=== PATIENT | female | born 1950 | race Caucasian/White ===

== ENCOUNTER → 2016-09-20 | Outpatient (CLI) | payer MEDICARE, BC ==
[~2016-09-20] MED LIST: ASPI-781 PO; BUPR200T2 PO; CRES10 PO; ESTR1TAB23; IMIT25 PO; LACT1CAP56 PO; LIOT5TAB3 PO; MONT10TA21 PO; PROG100C3; SYN15 PO; TEST100V IM; ZOLM2.5S NASAL
--- NOTE | 2016-09-20 17:35 | HKNOTE ---
DATE OF SERVICE: 09/20/2016 HISTORY OF PRESENT ILLNESS: The patient is a 66-year-old female who presents today for 1 year followup status post right anterior total hip replacement. The patient was last seen about 6 months ago, and since then, the patient states that when she is performing her normal activities of daily living, she has no pain complaints. The patient states that when she performs increased activities such as her exercise class with her personal care aid, she can have moderate to severe pain. The patient had microdiskectomy to the lumbar spine performed in April 2014 which was about 4 months prior to her hip replacement. She states that when she has increased activity, the pain is to the low back and can radiate down the leg. The patient also states that she has groin pain from time to time and is unsure if this is coming from the hip or the back. Currently, the patient is experiencing no pain complaints. She is walking normally with no assisted ambulation or assisted ambulatory device. She states that her primary care physician has recommended physical therapy. She does state however that right hip replacement has been a complete success. PHYSICAL EXAMINATION: VITAL SIGNS: Blood pressure 153/75, temperature 98.3 degrees, pulse 75, respiratory rate 12. Height is 5 feet 3 inches, weight is 155 pounds. GENERAL: The patient has normal range of motion to the right hip. No pain on examination today. Normal abduction and adduction. Strength is normal to the flexors, abductors, and extensors. Normal sensory examination. Gait is normal and nonantalgic. When asked to point to primary area of pain, the patient points to the right-sided lumbar spine. RADIOGRAPHIC DATA: X-ray to the right hip is within normal limits showing all components well aligned and appeared to be well attached and integrated to the bone. No signs of lucencies between metal and bone. ASSESSMENT AND PLAN: Discussion had directly with Dr. Robin today, and based off of patient's pain complaints primary to the right-sided lumbar spine, it appears that pain could be primarily due to the lumbar spine. Dr. Robin agrees that the patient should continue with physical therapy but also she was advised to follow-up with her docket specialist that she is seen in the past for discussion and possible repeat epidural injection. Continue with activity to the right hip as she has been doing well. At this stage, hip is stable with no complications, and the patient may follow up in office if she has any problems down the road. Follow up as needed. Dictated By: PERRY FELDMAN for MAXINE ROBIN MD, KP/ZACK Conf#: [id number] DID#: [id number] MTDD
== END | disposition home or self-care (01) ==
LOC: HKI 13:34
DX: Z47.1 Aftercare following joint replacement surgery (principal); Z96.641 Presence of right artificial hip joint
CPT/HCPCS: 73502; G0463